=== PATIENT | male | born 1970 | race Caucasian/White ===

== ENCOUNTER 2023-08-02 13:28 | Emergency (ER) | payer OTHER ==
[~2023-08-02] VITALS: Ht 172.7 cm; Wt 77.0 kg
[2023-08-02 13:34] VITALS: O2SAT 100
[2023-08-02 14:23] VITALS: BP 138/73; PULSE 99; RESP 18; TEMP 98.6
== END 2023-08-02 14:24 ==
LOC: ER 14:01
DX: Z04.1 Encounter for examination and observation following transport accident (principal); V98.8XXA Other specified transport accidents, initial encounter; Y93.89 Activity, other specified; Y92.89 Other specified places as the place of occurrence of the external cause; Y99.8 Other external cause status
CPT/HCPCS: 99283